=== PATIENT | female | born 1990 | race African-American/Black ===

== ENCOUNTER 2021-07-15 08:33 | Emergency (ER) | payer BC, OTHER ==
[2021-07-15 08:40] VITALS: BP 125/86; PULSE 72; TEMP 98.1; BMI 35.4
[2021-07-15] MEDS ORDERED: SODIUM CHLORIDE 0.9% 500 ML INFUS.BAG IV ONE (09:05)
[2021-07-15] MEDS ORDERED: FAMOTIDINE 20 MG/50 ML IVPB 20 MG/50 ML MG IVPB ONE ×2 (09:05→10:13)
[2021-07-15] MEDS ORDERED: ONDANSETRON 4 MG/2 ML VIAL IVPUSH ONE (09:05)
[2021-07-15] MEDS ORDERED: ONDANSETRON 4 MG/2 ML VIAL ONE (09:54)
[2021-07-15 10:40] LABS: HEMATOCRIT 41.2 % (32.4-45.2); HEMOGLOBIN 13.8 GM/dL (10.7-15.3); MCH 29.2 pg (25.7-33.7); MCHC 33.4 g/dl (32.0-36.0); MEAN CELL VOLUME 87.3 fl (80-96); MEAN PLT VOLUME 9.8 fl (7.5-11.1); PLATELET COUNT 230 10^3/uL (134-434); RBC 4.72 M/mm3 (3.60-5.2); RDW 12.9 % (11.6-15.6); WHITE BLOOD COUNT 4.6 K/mm3 (4.0-10.0)
[2021-07-15 10:59] LABS: CALCIUM 9.8 mg/dL (8.5-10.1)
[2021-07-15 11:00] LABS: ALBUMIN 3.9 g/dl (3.4-5.0); BLOOD UREA NITROGEN 9.5 mg/dL (7-18); MAGNESIUM 2.2 mg/dL (1.8-2.4)
[2021-07-15 11:03] LABS: CREATININE 0.6 mg/dL (0.55-1.3)
[2021-07-15 11:04] LABS: TOT PROT 7.8 g/dl (6.4-8.2)
[2021-07-15 11:05] LABS: BILIRUBIN,TOTAL 0.9 mg/dL (0.2-1)
[2021-07-15] MEDS ORDERED: POTASSIUM CHLORIDE TABS 20 MEQ TABLET.ER (FP) PO ONE (11:18)
[2021-07-15 13:20] LABS: ANISOCYTOSIS 2+; MACROCYTOSIS 0; PLATELET ESTIMATE NORMAL; TARGET CELLS 1+
[2021-07-16 14:10] LABS: SARS-CoV-2 NAA Detected (Not Detected)
== END 2021-07-15 11:43 | disposition home or self-care (01) ==
LOC: JER 08:33
PROC: 3E033NZ Introduction of Analgesics, Hypnotics, Sedatives into Peripheral Vein, Percutaneous Approach (ICD-10-PCS; principal; 2021-07-15)
PROC: 3E033GC Introduction of Other Therapeutic Substance into Peripheral Vein, Percutaneous Approach (ICD-10-PCS; 2021-07-15)
DX: R94.5 Abnormal results of liver function studies (principal); R11.2 Nausea with vomiting, unspecified
CPT/HCPCS: 36415; 80053; 83690; 83735; 84703; 85025; 87804; 99284-25; C9803; U0003; U0005